=== PATIENT | female | born 1970 | race African-American/Black ===

== ENCOUNTER 2022-03-05 09:03 | Emergency (ER) | payer OTHER ==
[2022-03-05 09:08] VITALS: BMI 39.4
[2022-03-05] MEDS ORDERED: FAMOTIDINE 20 MG/50 ML IVPB 20 MG/50 ML MG IVPB ONE ×2 (09:40→09:55)
[2022-03-05] MEDS ORDERED: SODIUM CHLORIDE 0.9% 500 ML INFUS.BAG IV ONE ×2 (09:40→12:36)
[2022-03-05] MEDS ORDERED: methylPREDNISolone NA SUCC 125 MG/2 ML VIAL IVPUSH ONE (09:41)
[2022-03-05] MEDS ORDERED: methylPREDNISolone NA SUCC 125 MG/2 ML VIAL ONE (09:55)
[2022-03-05] MEDS ORDERED: ACETAMINOPHEN 1000 MG/100 ML BAG IVPB ONE (10:17)
[2022-03-05] MEDS ORDERED: ACETAMINOPHEN INJECTION 100 ML IVPB ONE (10:58)
[2022-03-05 15:14] VITALS: BP 147/74; PULSE 97; TEMP 99.3
[2022-03-05 15:23] LABS: URINE APPEARANCE CLEAR; URINE BILIRUBIN NEGATIVE (NEGATIVE); URINE COLOR YELLOW; URINE GLUCOSE (UA) 2+ (NEGATIVE); URINE KETONE 2+ (NEGATIVE); URINE LEUK ESTERASE NEGATIVE (NEGATIVE); URINE NITRITE NEGATIVE (NEGATIVE); URINE PROTEIN TRACE (NEGATIVE)
[2022-03-05 15:39] LABS: BASO % 0.3 % (0-2.0); EOS % 0.1 % (0-4.5); HEMATOCRIT 44.5 % (32.4-45.2); HEMOGLOBIN 14.5 GM/dL (10.7-15.3); LYMPH % 9.8 % (8-40); MCHC 32.5 g/dl (32.0-36.0); MEAN CELL VOLUME 86.3 fl (80-96); MEAN PLT VOLUME 9.1 fl (7.5-11.1); MONO % 7.5 % (3.8-10.2); NEUT % 82.3 % (42.8-82.8); PLATELET COUNT 247 10^3/uL (134-434); RBC 5.16 M/mm3 (3.60-5.2); RDW 14.7 % (11.6-15.6); WHITE BLOOD COUNT 10.3 K/mm3 (4.0-10.0)
[2022-03-05 16:18] LABS: CHLORIDE 102 mmol/L (98-107); SODIUM 139 mmol/L (136-145)
[2022-03-05 16:20] LABS: CALCIUM 9.3 mg/dL (8.5-10.1)
[2022-03-05 16:21] LABS: ALBUMIN 3.7 g/dl (3.4-5.0); ANION GAP 12 MMOL/L (8-16); BLOOD UREA NITROGEN 9.5 mg/dL (7-18); CO2 25 mmol/L (21-32); GLUCOSE,RANDOM 169 mg/dL (74-106)
[2022-03-05 16:23] LABS: SGPT/ALT 28 U/L (13-61)
[2022-03-05 16:24] LABS: SGOT/AST 19 U/L (15-37)
[2022-03-05 16:25] LABS: TOT PROT 7.3 g/dl (6.4-8.2)
[2022-03-05 16:26] LABS: BILIRUBIN,TOTAL 0.3 mg/dL (0.2-1)
[2022-03-05 16:27] LABS: ALK PHOS 103 U/L (45-117)
== END 2022-03-05 17:09 | disposition home or self-care (01) ==
LOC: JER 09:03
PROC: 3E033GC Introduction of Other Therapeutic Substance into Peripheral Vein, Percutaneous Approach (ICD-10-PCS; principal; 2022-03-05)
DX: U07.1 COVID-19 (principal)
CPT/HCPCS: 0241U-QW; 36415; 71045-TC-FY; 80053; 81003; 82550; 82553; 84443; 84703; 85025; 87086; 99284-25

== ENCOUNTER 2025-04-27 12:34 | Emergency (ER) | payer BC, OTHER ==
[2025-04-27 12:54] VITALS: RESP 18; TEMP 98.1; BMI 34.3
[2025-04-27] MEDS ORDERED: FAMOTIDINE 20 MG/50 ML IVPB 20 MG/50 ML MG IVPB ONE (13:15)
[2025-04-27] MEDS ORDERED: diphenhydrAMINE HCL 25 MG CAPSULE (FP) PO ONE (13:27)
[2025-04-27] MEDS ORDERED: FAMOTIDINE 20 MG TABLET ONE (13:27)
[2025-04-27] MEDS: FAMOTIDINE 20 MG TABLET PO ONE (13:28)
[2025-04-27] MEDS: diphenhydrAMINE HCL 25 MG CAPSULE (FP) PO ONE (13:28)
[2025-04-27 14:10] VITALS: BP 153/73; PULSE 86
== END 2025-04-27 14:10 | disposition home or self-care (01) ==
LOC: JER 12:34
DX: R20.0 Anesthesia of skin (principal); K13.0 Diseases of lips; T78.40XA Allergy, unspecified, initial encounter
CPT/HCPCS: 99283-25